=== PATIENT | female | born 1950 | race Caucasian/White ===

== ENCOUNTER 2017-06-03 05:01 | Emergency (ER) | payer MEDICARE ==
[~2017-06-03] VITALS: Ht 170.2 cm; Wt 88.9 kg
--- NOTE | 2017-06-03 05:03 | PHYS DOC ---
Past Medical History Past Medical History: Hypertension Adult General Chief Complaint Chief Complaint: PAIN ON URINATION HPI HPI Patient is a 67 year old female who presents with frequency of urination, burning and now blood in her urine. This started earlier in the evening with frequent urination. She states now hurts to urinate and she has quite a bit of blood. Last weekend she had nausea vomiting diarrhea but that resolved and 24- 48 hrs. No recent travel. No vomiting presently and no fever. No back pain. Review of Systems Review of Systems Constitutional: Denies fever or chills Eyes: Denies change in visual acuity, redness, or eye pain HENT: Denies nasal congestion or sore throat Respiratory: Denies cough or shortness of breath Cardiovascular: No chest pain GI: Denies abdominal pain, nausea, vomiting, bloody stools or diarrhea : see HPI Musculoskeletal: Denies back pain or joint pain Integument: Denies rash or skin lesions Neurologic: Denies headache, focal weakness or sensory changes Current Medications Current Medications Current Medications Medications (Trade) Dose Ordered Sig/Maurice Start Time Stop Time Status Last Admin Dose Admin Phenazopyridine HCl (Pyridium) 200 mg 1X ONCE 06/03/17 05:45 06/03/17 05:46 Allergies Allergies Allergies Coded Allergies Type Severity Reaction Last Updated Verified rivaroxaban Allergy Mild HIVES 06/03/17 Yes Physical Exam Physical Exam Constitutional: Well developed, well nourished, no acute distress, non-toxic appearance. HENT: Normocephalic, atraumatic, bilateral external ears normal, oropharynx moist, no oral exudates, nose normal. Eyes: PERRLA, EOMI, conjunctiva normal, no discharge. Neck: Normal range of motion, no tenderness, supple, no stridor. Cardiovascular:Heart rate regular rhythm, no murmur Lungs & Thorax: Bilateral breath sounds clear to auscultation Abdomen: Bowel sounds normal, soft, no tenderness, no masses, no pulsatile masses. Skin: Warm, dry, no erythema, no rash. Back: No tenderness, no CVA tenderness. Extremities: No tenderness, no cyanosis, no clubbing, ROM intact, no edema. Neurologic: Alert and oriented X 3, normal motor function, normal sensory function, no focal deficits noted. Psychologic: Affect normal, judgement normal, mood normal. Current Patient Data Vital Signs Vital Signs Date Time Temp Pulse Resp B/P (MAP) Pulse Ox O2 Delivery O2 Flow Rate FiO2 06/03/17 05:14 98.4 62 18 228/93 (138) 95 Room Air 98.4 Lab Values Laboratory Tests Test 06/03/17 05:07 Urine Collection Type Unknown Urine Color Red Urine Clarity Turbid Urine pH 6.0 Urine Specific [place] 1.015 Urine Protein >=300 mg/dL (NEG-TRACE) Urine Glucose (UA) Negative mg/dL (NEG) Urine Ketones (Stick) 15 mg/dL (NEG) Urine Blood Large (NEG) Urine Nitrite Negative (NEG) Urine Bilirubin Moderate (NEG) Urine Urobilinogen Dipstick 0.2 mg/dL (0.2 mg/dL) Urine Leukocyte Esterase Large (NEG) Urine RBC Tntc /HPF (0-2) Urine WBC 20-40 /HPF (0-4) Urine Squamous Epithelial Cells Few /LPF Urine Bacteria 0 /HPF (0-FEW) Urine Mucus Slight /LPF Course & Med Decision Making Course & Med Decision Making Evaluated patient upon arrival. UA sent. Pyridium dosed. UA positive. Rocephin IM and will place on macrobid. Will need to r/u on Culture. Dragon Disclaimer Dragon Disclaimer This electronic medical record was generated, in whole or in part, using a voice recognition dictation system. Departure Departure Impression: Primary Impression: Urinary tract infection Disposition: HOME, SELF-CARE Condition: STABLE Referrals: СВЕТЛАНА CORDERO MD (PCP) Patient Instructions: Urinary Tract Infection Scripts Phenazopyridine Hcl (PYRIDIUM) 200 Mg Tablet 200 MG PO TID, #10 TAB Prov: VIJAYA MOLINA MD 06/03/17 Nitrofurantoin Monohyd/M-Cryst (MACROBID 100 MG CAPSULE) 100 Mg Capsule 1 CAP PO BID, #14 CAP Prov: VIJAYA MOLINA MD 06/03/17 Problem Qualifiers Primary Impression: Urinary tract infection Urinary tract infection type: acute cystitis Hematuria presence: with hematuria Qualified Codes: N30.01 - Acute cystitis with hematuria VIJAYA MOLINA MD Jun 03, 2017 05:03
[2017-06-03 05:14] VITALS: BP 228/93
[2017-06-03 05:28] LABS: BILIRUBIN,URINE MODERATE (NEG); GLUCOSE,URINE NEGATIVE (NEG); NITRITE,URINE NEGATIVE (NEG); PROTEIN,URINE >=300 mg/dL (NEG-TRACE); UROBILINOGEN,URINE 0.2 mg/dL (0.2 mg/dL)
[2017-06-03] MEDS ORDERED: METO25TA2 PO (05:31)
[2017-06-03 05:34] LABS: BACTERIA,URINE 0 /HPF (0-FEW); RBC,URINE TNTC /HPF (0-2); SQUAMOUS EPITHELIAL CELL,UR FEW /LPF; WBC,URINE 20-40 /HPF (0-4)
[2017-06-03] MEDS ORDERED: NITR100C62 PO (05:37)
[2017-06-03] MEDS ORDERED: PHEN-318 PO (05:37)
[2017-06-03] MEDS ORDERED: PHENAZOPYRIDINE 200 MG TABLET. PO ONE (05:45)
[2017-06-03] MEDS ORDERED: cefTRIAXone IM 1 GM VIAL IM ONE (06:00)
== END 2017-06-03 06:05 | disposition home or self-care (01) ==
LOC: ER 05:01
DX: N39.0 Urinary tract infection, site not specified (principal); I10 Essential (primary) hypertension; Z88.1 Allergy status to other antibiotic agents
CPT/HCPCS: 81001; 87086; 96372; 99284; J0696; 87186